=== PATIENT | female | born 1990 | race African-American/Black ===

== ENCOUNTER 2023-07-29 04:23 | Emergency (ER) | payer SELFPAY ==
[~2023-07-29] VITALS: Ht 162.6 cm; Wt 55.0 kg
[2023-07-29 04:39] VITALS: O2SAT 99
[2023-07-29 05:39] VITALS: BP 129/86; PULSE 104; RESP 18; TEMP 98.3
== END 2023-07-29 06:17 | disposition home or self-care (01) ==
LOC: ER 04:49
DX: S00.511A Abrasion of lip, initial encounter (principal); F10.129 Alcohol abuse with intoxication, unspecified; Y08.89XA Assault by other specified means, initial encounter; Y93.89 Activity, other specified; Y92.89 Other specified places as the place of occurrence of the external cause; Y99.8 Other external cause status; Y90.9 Presence of alcohol in blood, level not specified
CPT/HCPCS: 99283